=== PATIENT | female | born 1975 | race Caucasian/White ===

== ENCOUNTER 2020-08-19 22:54 | Emergency (ER) | payer OTHER ==
[~2020-08-19] VITALS: Ht 167.6 cm; Wt 54.4 kg
[2020-08-20] MEDS ORDERED: CEPH500 PO (00:51)
== END 2020-08-20 01:00 | disposition home or self-care (01) ==
LOC: ER 22:54
DX: S61.512A Laceration without foreign body of left wrist, initial encounter (principal); F17.210 Nicotine dependence, cigarettes, uncomplicated; Z88.0 Allergy status to penicillin; W27.0XXA Contact with workbench tool, initial encounter
CPT/HCPCS: 12001; 73110; 90471; 90714; 99283-25; A9270

== ENCOUNTER 2023-08-05 19:18 | Emergency (ER) | payer OTHER ==
[~2023-08-05] VITALS: Ht 167.6 cm; Wt 60.3 kg
[~2023-08-05 19:18] MED LIST: CEPH500 PO
[2023-08-05 19:30] VITALS: BP 126/69
[2023-08-05] MEDS ORDERED: Ketorolac Tromethamine 30mg Vial IM ONE (21:05)
== END 2023-08-05 21:48 | disposition home or self-care (01) ==
LOC: ER 19:18
DX: S02.2XXA Fracture of nasal bones, initial encounter for closed fracture (principal); S20.212A Contusion of left front wall of thorax, initial encounter; S09.90XA Unspecified injury of head, initial encounter; F17.210 Nicotine dependence, cigarettes, uncomplicated; W01.0XXA Fall on same level from slipping, tripping and stumbling without subsequent striking against object, initial encounter; Z88.0 Allergy status to penicillin; Z79.2 Long term (current) use of antibiotics
CPT/HCPCS: 70450; 70486; 71101; 72125; J1885